=== PATIENT | female | born 1985 | race African-American/Black ===

== ENCOUNTER 2020-04-05 19:22 | Observation (INO) | payer BC, MEDICAID ==
[~2020-04-05] VITALS: Ht 154.9 cm; Wt 81.8 kg
[2020-04-05 20:29] LABS: BILIRUBIN,URINE NEGATIVE (NEG); CLARITY,URINE CLEAR; COLOR,URINE YELLOW; NITRITE,URINE NEGATIVE (NEG); PROTEIN,URINE NEGATIVE (NEG-TRACE); UROBILINOGEN,URINE 0.2 mg/dL (0.2 mg/dL)
[2020-04-05 20:37] LABS: BACTERIA,URINE 0 /HPF (0-FEW); RBC,URINE RARE /HPF (0-2); TRICHOMONAS,URINE PRESENT; WBC,URINE RARE /HPF (0-4)
--- NOTE | 2020-04-06 00:10 | ED.ADGEN ---
Past Medical History Past Medical History: High Cholesterol, Hypertension, Pancreatitis Past Surgical History: No Surgical History Smoking Status: Current Every Day Smoker Additional Information: 1 PPD Alcohol Use: Heavy General Adult EDM: Chief Complaint: ABDOMINAL PAIN HPI: HPI: Patient is a 34 year old female coming in for right-sided abdominal pain started since she woke up at 1530 the afternoon. Patient does states she has a history of pancreatitis but states it affected the left side of her abdomen, 2 years ago. Says she has tried to eat but does not have appetite when she did the pain seemed worse. Patient states the pain is worse with movement. Denies any known history of gallbladder problems. Denies any changes in urination. Patient does states she has alcohol last night. Denies any fevers, cough, pain anywhere else, diarrhea or constipation. Review of Systems: Review of Systems: All other systems within normal limits except for as noted in the HPI Current Medications: Current Medications Medications (Trade) Dose Ordered Sig/Drew Start Time Stop Time Status Last Admin Dose Admin Fentanyl Citrate (Fentanyl 2ml Vial) 75 mcg 1X ONCE 04/06/20 00:15 04/06/20 00:16 DC 04/06/20 00:24 75 MCG Info (CONTRAST GIVEN -- Rx MONITORING) 1 each PRN DAILY PRN 04/06/20 01:15 04/08/20 01:14 Iohexol (Omnipaque 300 Mg/ml) 75 ml 1X ONCE 04/06/20 01:15 04/06/20 01:16 DC 04/06/20 01:00 75 ML Ondansetron HCl (Zofran) 4 mg 1X ONCE 04/06/20 00:15 04/06/20 00:16 DC 04/06/20 00:23 4 MG Allergies: Allergies: Allergies Coded Allergies Type Severity Reaction Last Updated Verified No Known Drug Allergies 04/05/20 No Physical Exam: PE: Constitutional: Well developed, well nourished, no acute distress, non-toxic appearance. [] HENT: Normocephalic, atraumatic, bilateral external ears normal, nose normal. [] Eyes: PERRLA, conjunctiva normal, no discharge. [] Neck: No rigidity, supple, no stridor. [] Cardiovascular: Regular rate and rhythm, brisk cap refill [] Lungs & Thorax: Non labored symmetric respirations, no tachypnea or respiratory distress [] Abdomen: Soft, nondistended, tenderness on right side just lateral to umbilicus, mild guarding, positive rebound, negative Montes sign Skin: Warm, dry, no erythema, no rash. [] Back: No tenderness, no CVA tenderness. [] Extremities: No deformities, range of motion grossly intact, no lower extremity edema [] Neurologic: Alert and oriented X 3, no focal deficits noted. [] Psychologic: Affect normal, judgement normal, mood normal. [] Current Patient Data: Labs: Laboratory Tests Test 04/05/20 20:00 04/05/20 20:06 04/06/20 00:10 Urine Collection Type Unknown Urine Color Yellow Urine Clarity Clear Urine pH 6.0 (<5.0-8.0) Urine Specific [place] 1.015 (1.000-1.030) Urine Protein Negative mg/dL (NEG-TRACE) Urine Glucose (UA) Negative mg/dL (NEG) Urine Ketones (Stick) Negative mg/dL (NEG) Urine Blood Negative (NEG) Urine Nitrite Negative (NEG) Urine Bilirubin Negative (NEG) Urine Urobilinogen Dipstick 0.2 mg/dL (0.2 mg/dL) Urine Leukocyte Esterase Negative (NEG) Urine RBC Rare /HPF (0-2) Urine WBC Rare /HPF (0-4) Urine Squamous Epithelial Cells Mod /LPF Urine Bacteria 0 /HPF (0-FEW) Urine Mucus Slight /LPF Urine Trichomonas Present POC Urine HCG, Qualitative Hcg negative (Negative) White Blood Count 5.6 x10^3/uL (4.0-11.0) Red Blood Count 4.31 x10^6/uL (3.50-5.40) Hemoglobin 14.0 g/dL (12.0-15.5) Hematocrit 40.3 % (36.0-47.0) Mean Corpuscular Volume 94 fL (79-100) Mean Corpuscular Hemoglobin 33 pg (25-35) Mean Corpuscular Hemoglobin Concent 35 g/dL (31-37) Red Cell Distribution Width 15.0 % (11.5-14.5) H Platelet Count 295 x10^3/uL (140-400) Neutrophils (%) (Auto) 37 % (31-73) Lymphocytes (%) (Auto) 55 % (24-48) H Monocytes (%) (Auto) 6 % (0-9) Eosinophils (%) (Auto) 1 % (0-3) Basophils (%) (Auto) 2 % (0-3) Neutrophils # (Auto) 2.1 x10^3/uL (1.8-7.7) Lymphocytes # (Auto) 3.1 x10^3/uL (1.0-4.8) Monocytes # (Auto) 0.4 x10^3/uL (0.0-1.1) Eosinophils # (Auto) 0.0 x10^3/uL (0.0-0.7) Basophils # (Auto) 0.1 x10^3/uL (0.0-0.2) Sodium Level 141 mmol/L (136-145) Potassium Level 3.8 mmol/L (3.5-5.1) Chloride Level 105 mmol/L (98-107) Carbon Dioxide Level 25 mmol/L (21-32) Anion Gap 11 (6-14) Blood Urea Nitrogen 9 mg/dL (7-20) Creatinine 0.7 mg/dL (0.6-1.0) Estimated GFR (Cockcroft-Gault) 115.9 BUN/Creatinine Ratio 13 (6-20) Glucose Level 98 mg/dL (70-99) Calcium Level 8.5 mg/dL (8.5-10.1) Total Bilirubin 0.3 mg/dL (0.2-1.0) Aspartate Amino Transferase (AST) 37 U/L (15-37) Alanine Aminotransferase (ALT) 28 U/L (14-59) Alkaline Phosphatase 87 U/L (46-116) Total Protein 7.6 g/dL (6.4-8.2) Albumin 3.8 g/dL (3.4-5.0) Albumin/Globulin Ratio 1.0 (1.0-1.7) Lipase 256 U/L (73-393) Laboratory Tests 04/06/20 00:10 Laboratory Tests 04/06/20 00:10 Vital Signs: Vital Signs Date Time Temp Pulse Resp B/P (MAP) Pulse Ox O2 Delivery O2 Flow Rate FiO2 04/06/20 00:31 73 20 163/85 (111) 94 Room Air 04/05/20 20:20 98.0 98.0 EKG: EKG: [] Heart Score: Risk Factors: Risk Factors: DM, Current or recent (<one month) smoker, HTN, HLP, family history of CAD, obesity. Risk Scores: Score 0 - 3: 2.5% MACE over next 6 weeks - Discharge Home Score 4 - 6: 20.3% MACE over next 6 weeks - Admit for Clinical Observation Score 7 - 10: 72.7% MACE over next 6 weeks - Early Invasive Strategies Radiology/Procedures: Radiology/Procedures: EXAM: CT Abdomen and Pelvis with IV contrast CLINICAL HISTORY: right side abd pain COMPARISON: none TECHNIQUE: Helical CT of the abdomen and pelvis was performed following the administration of intravenous contrast. Axial, coronal and sagittal reformatted images were generated. PQRS compliance statement - One or more of the following individualized dose reduction techniques were utilized for this study: 1. Automated exposure control 2. Adjustment of the mA and/or kV according to patient size 3. Use of iterative reconstruction technique FINDINGS: Lower Chest: Lung bases are clear. Abdomen and Pelvis: Hepatic hypoattenuation, likely fatty liver. Superimposed low-attenuation at the falciform ligament likely focal fatty infiltration. No biliary ductal dilatation. Gallbladder, spleen, adrenal glands and kidneys are normal in appearance. No hydronephrosis. There is marked infiltration and edema about the pancreatic head suspicious for acute pancreatitis. Homogenous enhancement of the pancreas without evidence for ischemia or loculated fluid collection. Aorta is normal in caliber. Portal vein, splenic vein and SMA are patent. No abdominal or pelvic lymphadenopathy. No abdominal or pelvic ascites. Myometrial prominence anteriorly within the uterus likely from underlying fibroid. Bones: No aggressive osseous lesion. IMPRESSION: 1. Changes of acute pancreatitis, most prominent at the pancreatic head. 2. Hepatic hypoattenuation, likely fatty liver. 3. Suspected fibroid within the uterus anteriorly.[] Course & Med Decision Making: Course & Med Decision Making Pertinent Labs and Imaging studies reviewed. (See chart for details) [] Dragon Disclaimer: Dragon Disclaimer: This electronic medical record was generated, in whole or in part, using a voice recognition dictation system. Departure Departure Impression: Primary Impression: Acute pancreatitis Disposition: 09 ADMITTED INPT THIS HOSP Admitting Physician: EUGENIA Condition: STABLE Referrals: NO PCP (PCP) KAYLYNN PENNINGTON MD Apr 06, 2020 00:10
[2020-04-06] MEDS ORDERED: ONDANSETRON PF 4 MG/2 ML VIAL. IVP ONE (00:15)
[2020-04-06] MEDS ORDERED: fentaNYL PF VIAL 100 MCG/2 ML VIAL IVP ONE (00:15)
[2020-04-06 00:23] LABS: BASO # 0.1 x10^3/uL (0.0-0.2); BASO % 2 % (0-3); EOS % 1 % (0-3); HEMATOCRIT 40.3 % (36.0-47.0); LYMPH # 3.1 x10^3/uL (1.0-4.8); LYMPH % 55 % (24-48); MEAN CORPUSCULAR HEMOGLOBIN 33 pg (25-35); MEAN CORPUSCULAR HGB CONC 35 g/dL (31-37); MEAN CORPUSCULAR VOLUME 94 fL (79-100); MONO # 0.4 x10^3/uL (0.0-1.1); MONO % 6 % (0-9); NEUT # 2.1 x10^3/uL (1.8-7.7); NEUT % 37 % (31-73); PLATELET COUNT 295 x10^3/uL (140-400); RED BLOOD COUNT 4.31 x10^6/uL (3.50-5.40); WHITE BLOOD COUNT 5.6 x10^3/uL (4.0-11.0)
[2020-04-06 00:30] LABS: CALCIUM 8.5 mg/dL (8.5-10.1); CREATININE 0.7 mg/dL (0.6-1.0); GFR 115.9; POTASSIUM 3.8 mmol/L (3.5-5.1)
[2020-04-06 00:36] LABS: ALBUMIN 3.8 g/dL (3.4-5.0); TOTAL BILIRUBIN 0.3 mg/dL (0.2-1.0); TOTAL PROTEIN 7.6 g/dL (6.4-8.2)
[2020-04-06] MEDS ORDERED: CONTRAST GIVEN. MC PRN (01:15)
[2020-04-06] MEDS ORDERED: IOHEXOL 300 MG/ML 100ML VIAL. IV ONE (01:15)
--- NOTE | 2020-04-06 01:20 | RAD ---
EXAM: CT Abdomen and Pelvis with IV contrast CLINICAL HISTORY: right side abd pain COMPARISON: none TECHNIQUE: Helical CT of the abdomen and pelvis was performed following the administration of intrave nous contrast. Axial, coronal and sagittal reformatted images were generated. PQRS compliance statement - One or more of the following individualized dose reduction techniques wer e utilized for this study: 1. Automated exposure control 2. Adjustment of the mA and/or kV according to patient size 3. Use of iterative reconstruction technique FINDINGS: Lower Chest: Lung bases are clear. Abdomen and Pelvis: Hepatic hypoattenuation, likely fatty liver. Superimposed low-attenuation at the falciform ligament l ikely focal fatty infiltration. No biliary ductal dilatation. Gallbladder, spleen, adrenal glands and kidneys are normal in appearance. No hydronephrosis. There is marked infiltration and edema about the pancreatic head suspicious for acute pancreatitis. H omogenous enhancement of the pancreas without evidence for ischemia or loculated fluid collection. Aorta is normal in caliber. Portal vein, splenic vein and SMA are patent. No abdominal or pelvic lymp hadenopathy. No abdominal or pelvic ascites. Myometrial prominence anteriorly within the uterus likely from underlying fibroid. Bones: No aggressive osseous lesion. IMPRESSION: 1. Changes of acute pancreatitis, most prominent at the pancreatic head. 2. Hepatic hypoattenuation, likely fatty liver. 3. Suspected fibroid within the uterus anteriorly. Electronically signed by: Marcus Álvarez MD (04/06/2020 1:18 AM) SHERIE
[2020-04-06] MEDS ORDERED: ONDANSETRON PF 4 MG/2 ML VIAL. IV PRN (01:45)
[2020-04-06 03:00] VITALS: BP 165/110
[2020-04-06] MEDS: IV NORMAL SALINE 1000ML BAG 1,000 ML IV SCH ×5 (03:18→21:50)
[2020-04-06] MEDS: MORPHINE SULFATE 4 MG/ML VIAL. IV PRN ×3 (03:19→08:39)
[2020-04-06] MEDS ORDERED: MORPHINE SULFATE 4 MG/ML VIAL. IV PRN (04:00)
[2020-04-06] MEDS: NICOTINE 21MG PATCH. TD SCH ×2 (04:34→08:33)
[2020-04-06 07:00] VITALS: BP 144/97
--- NOTE | 2020-04-06 08:20 | PDOC1 ---
History and Physical Date of Service: DOS: DATE: 04/06/20 TIME: 08:17 Chief Complaint: Chief Complain: Abdominal pain History of Present Illness: HPI: 34 year old female coming in for right-sided abdominal pain started since she woke up at 1530 the afternoon. Patient does states she has a history of pancreatitis but states it affected the left side of her abdomen, 2 years ago. Says she has tried to eat but does not have appetite when she did the pain seemed worse. Patient states the pain is worse with movement. Denies any known history of gallbladder problems. Denies any changes in urination. Patient does states she has alcohol last night. Denies any fevers, cough, pain anywhere else, diarrhea or constipation. Past Medical/Surgical History: PMH/PSH: Past Medical History: High Cholesterol, Hypertension, Pancreatitis Past Surgical History: No Surgical History Allergies: Allergies: Coded Allergies: No Known Drug Allergies (Unverified , 04/05/20) Family History: Family History: Reviewed with no relevant findings Social History: Social History: Smoking Status: Current Every Day Smoker Additional Information: 1 PPD Alcohol Use: Heavy Current Medications: Current Medications Current Medications Ondansetron HCl (Zofran) 4 mg 1X ONCE IVP Last administered on 04/06/20at 00:23; Start 04/06/20 at 00:15; Stop 04/06/20 at 00:16; Status DC Fentanyl Citrate (Fentanyl 2ml Vial) 75 mcg 1X ONCE IVP Last administered on 04/06/20at 00:24; Start 04/06/20 at 00:15; Stop 04/06/20 at 00:16; Status DC Iohexol (Omnipaque 300 Mg/ml) 75 ml 1X ONCE IV Last administered on 04/06/20at 01:00; Start 04/06/20 at 01:15; Stop 04/06/20 at 01:16; Status DC Info (CONTRAST GIVEN -- Rx MONITORING) 1 each PRN DAILY PRN MC SEE COMMENTS; Start 04/06/20 at 01:15; Stop 04/08/20 at 01:14 Ondansetron HCl (Zofran) 4 mg PRN Q8HRS PRN IV NAUSEA/VOMITING; Start 04/06/20 at 01:45; Stop 04/07/20 at 01:44 Morphine Sulfate (Morphine Sulfate) 4 mg PRN Q2HR PRN IV PAIN Last administered on 04/06/20at 05:55; Start 04/06/20 at 01:45; Stop 04/07/20 at 01:44 Sodium Chloride 1,000 ml @ 100 mls/hr Q10H IV Last administered on 04/06/20at 03:18; Start 04/06/20 at 01:45; Stop 04/07/20 at 01:44 Nicotine (Nicoderm Cq 21mg) 1 patch DAILY TD Last administered on 04/06/20at 04:34; Start 04/06/20 at 04:30 ROS: Review of Systems Review of System REVIEW OF SYSTEMS: GENERAL: Denies weakness SKIN: No bruising, hair changes or rashes. EYES: No blurred, double or loss of vision. NOSE AND THROAT: No history of nosebleeds, hoarseness or sore throat. HEART: No history of palpitations, chest pain or shortness of breath on exertion. LUNGS: Denies cough, hemoptysis, wheezing or shortness of breath. GASTROINTESTINAL: Denies changes in appetite, nausea, vomiting, diarrhea or constipation. GENITOURINARY: No history of frequency, urgency, hesitancy or nocturia. NEUROLOGIC: Denies history of numbness, tingling, or tremor. PSYCHIATRIC: No history of panic, anxiety or depression. ENDOCRINE: No history of heat or cold intolerance, polyuria or polydipsia. EXTREMITIES: Denies joint pain, pain on walking or stiffness. Physical Exam: Vital Signs: Vital Signs Date Time Temp Pulse Resp B/P (MAP) Pulse Ox O2 Delivery O2 Flow Rate FiO2 04/06/20 07:00 98.0 75 16 144/97 (113) 98 Room Air 98.0 Physcial Exam: GEN: No apparent distress. Alert and oriented HEENT: Normal cephalic, atraumatic, external auditory canals are patent EYES: Extraocular muscles are intact, pupil are equally round and reactive to light and accommodation MUSCULOSKELETAL: Well developed , well nourished, good range of motion ENDOCRINE: No thyromegaly was palpated LYMPHATICS: No cervical chain or axillary nodes were noted HEMATOPOIETIC: No bruising NECK: Supple, no JVD, no thyromegaly was noted LUNGS: Clear to auscultation in all lung m[place] without rhonchi or wheezing HEART: RRR, S!, S2 present. Peripheral pulses intact, no obvious murmurs noted ABDOMEN: Soft, nontender. Positive bowel sounds, no organomegaly, normal bowel sounds EXTREMITIES: Without clubbing, cyanosis, or edema. Pedal pulses intact. Negative Homans sign NEUROLOGIC: Normal speech and tone. A&O x 3, moves all extremities, no obvious focal deficits PSYCHIATRIC: Normal affect, normal mood. Stable SKIN: No ulcerations or rashes, good skin turgor, no jaundice VASCULAR: Good capillary refill, neurovascular bundle appears to be intact Labs: Labs: Laboratory Tests Test 04/05/20 20:00 04/05/20 20:06 04/06/20 00:10 Urine Collection Type Unknown Urine Color Yellow Urine Clarity Clear Urine pH 6.0 (<5.0-8.0) Urine Specific [place] 1.015 (1.000-1.030) Urine Protein Negative mg/dL (NEG-TRACE) Urine Glucose (UA) Negative mg/dL (NEG) Urine Ketones (Stick) Negative mg/dL (NEG) Urine Blood Negative (NEG) Urine Nitrite Negative (NEG) Urine Bilirubin Negative (NEG) Urine Urobilinogen Dipstick 0.2 mg/dL (0.2 mg/dL) Urine Leukocyte Esterase Negative (NEG) Urine RBC Rare /HPF (0-2) Urine WBC Rare /HPF (0-4) Urine Squamous Epithelial Cells Mod /LPF Urine Bacteria 0 /HPF (0-FEW) Urine Mucus Slight /LPF Urine Trichomonas Present Bedside Urine HCG, Qualitative Hcg negative (Negative) White Blood Count 5.6 x10^3/uL (4.0-11.0) Red Blood Count 4.31 x10^6/uL (3.50-5.40) Hemoglobin 14.0 g/dL (12.0-15.5) Hematocrit 40.3 % (36.0-47.0) Mean Corpuscular Volume 94 fL (79-100) Mean Corpuscular Hemoglobin 33 pg (25-35) Mean Corpuscular Hemoglobin Concent 35 g/dL (31-37) Red Cell Distribution Width 15.0 % (11.5-14.5) Platelet Count 295 x10^3/uL (140-400) Neutrophils (%) (Auto) 37 % (31-73) Lymphocytes (%) (Auto) 55 % (24-48) Monocytes (%) (Auto) 6 % (0-9) Eosinophils (%) (Auto) 1 % (0-3) Basophils (%) (Auto) 2 % (0-3) Neutrophils # (Auto) 2.1 x10^3/uL (1.8-7.7) Lymphocytes # (Auto) 3.1 x10^3/uL (1.0-4.8) Monocytes # (Auto) 0.4 x10^3/uL (0.0-1.1) Eosinophils # (Auto) 0.0 x10^3/uL (0.0-0.7) Basophils # (Auto) 0.1 x10^3/uL (0.0-0.2) Sodium Level 141 mmol/L (136-145) Potassium Level 3.8 mmol/L (3.5-5.1) Chloride Level 105 mmol/L (98-107) Carbon Dioxide Level 25 mmol/L (21-32) Anion Gap 11 (6-14) Blood Urea Nitrogen 9 mg/dL (7-20) Creatinine 0.7 mg/dL (0.6-1.0) Estimated GFR (Cockcroft-Gault) 115.9 BUN/Creatinine Ratio 13 (6-20) Glucose Level 98 mg/dL (70-99) Calcium Level 8.5 mg/dL (8.5-10.1) Total Bilirubin 0.3 mg/dL (0.2-1.0) Aspartate Amino Transf (AST/SGOT) 37 U/L (15-37) Alanine Aminotransferase (ALT/SGPT) 28 U/L (14-59) Alkaline Phosphatase 87 U/L (46-116) Total Protein 7.6 g/dL (6.4-8.2) Albumin 3.8 g/dL (3.4-5.0) Albumin/Globulin Ratio 1.0 (1.0-1.7) Lipase 256 U/L (73-393) Laboratory Tests Test 04/05/20 20:00 04/05/20 20:06 04/06/20 00:10 Urine Collection Type Unknown Urine Color Yellow Urine Clarity Clear Urine pH 6.0 (<5.0-8.0) Urine Specific [place] 1.015 (1.000-1.030) Urine Protein Negative mg/dL (NEG-TRACE) Urine Glucose (UA) Negative mg/dL (NEG) Urine Ketones (Stick) Negative mg/dL (NEG) Urine Blood Negative (NEG) Urine Nitrite Negative (NEG) Urine Bilirubin Negative (NEG) Urine Urobilinogen Dipstick 0.2 mg/dL (0.2 mg/dL) Urine Leukocyte Esterase Negative (NEG) Urine RBC Rare /HPF (0-2) Urine WBC Rare /HPF (0-4) Urine Squamous Epithelial Cells Mod /LPF Urine Bacteria 0 /HPF (0-FEW) Urine Mucus Slight /LPF Urine Trichomonas Present Bedside Urine HCG, Qualitative Hcg negative (Negative) White Blood Count 5.6 x10^3/uL (4.0-11.0) Red Blood Count 4.31 x10^6/uL (3.50-5.40) Hemoglobin 14.0 g/dL (12.0-15.5) Hematocrit 40.3 % (36.0-47.0) Mean Corpuscular Volume 94 fL (79-100) Mean Corpuscular Hemoglobin 33 pg (25-35) Mean Corpuscular Hemoglobin Concent 35 g/dL (31-37) Red Cell Distribution Width 15.0 % (11.5-14.5) Platelet Count 295 x10^3/uL (140-400) Neutrophils (%) (Auto) 37 % (31-73) Lymphocytes (%) (Auto) 55 % (24-48) Monocytes (%) (Auto) 6 % (0-9) Eosinophils (%) (Auto) 1 % (0-3) Basophils (%) (Auto) 2 % (0-3) Neutrophils # (Auto) 2.1 x10^3/uL (1.8-7.7) Lymphocytes # (Auto) 3.1 x10^3/uL (1.0-4.8) Monocytes # (Auto) 0.4 x10^3/uL (0.0-1.1) Eosinophils # (Auto) 0.0 x10^3/uL (0.0-0.7) Basophils # (Auto) 0.1 x10^3/uL (0.0-0.2) Sodium Level 141 mmol/L (136-145) Potassium Level 3.8 mmol/L (3.5-5.1) Chloride Level 105 mmol/L (98-107) Carbon Dioxide Level 25 mmol/L (21-32) Anion Gap 11 (6-14) Blood Urea Nitrogen 9 mg/dL (7-20) Creatinine 0.7 mg/dL (0.6-1.0) Estimated GFR (Cockcroft-Gault) 115.9 BUN/Creatinine Ratio 13 (6-20) Glucose Level 98 mg/dL (70-99) Calcium Level 8.5 mg/dL (8.5-10.1) Total Bilirubin 0.3 mg/dL (0.2-1.0) Aspartate Amino Transf (AST/SGOT) 37 U/L (15-37) Alanine Aminotransferase (ALT/SGPT) 28 U/L (14-59) Alkaline Phosphatase 87 U/L (46-116) Total Protein 7.6 g/dL (6.4-8.2) Albumin 3.8 g/dL (3.4-5.0) Albumin/Globulin Ratio 1.0 (1.0-1.7) Lipase 256 U/L (73-393) Images: Images IMPRESSION: 1. Changes of acute pancreatitis, most prominent at the pancreatic head. 2. Hepatic hypoattenuation, likely fatty liver. 3. Suspected fibroid within the uterus anteriorly. Assessment/Plan Assessment/Plan Acute abdominal pain with radiographic suggestion of acute pancreatitis Hepatic steatosis Uterine fibroid Tobacco misuse Admit to medicine for further management Keep n.p.o. Continue IV fluids IV pain control Pending abdominal ultrasound to rule out gallstone pancreatitis Pending lipid panel to rule out triglyceride induced pancreatitis Lovenox for DVT prophylaxis Pepcid GI prophylaxis ADA diet Full code Discussed with RN and SW Disposition inpatient management as above Surrogate decision maker is the self Justifications for Admission Other Justification GHAZAL GARNETT MD Apr 06, 2020 08:20
[2020-04-06] MEDS ORDERED: SENNOSIDES 8.6 MG TABLET PO PRN (08:30)
[2020-04-06] MEDS ORDERED: ACETAMINOPHEN 325 MG TABLET. PO PRN (08:30)
[2020-04-06] MEDS ORDERED: DOCUSATE SODIUM 100 MG CAPSULE. PO PRN (08:30)
[2020-04-06] MEDS ORDERED: MORPHINE SULFATE 2 MG/ML VIAL. IV PRN (08:30)
[2020-04-06] MEDS ORDERED: DEXTROSE 50% 25 GM / 50ML DISP.SYRIN. IV PRN (08:30)
[2020-04-06] MEDS: ENOXAPARIN 40 MG/0.4 ML SYRINGE. SQ SCH (08:44)
[2020-04-06 08:53] LABS: CHOLESTEROL/HDL RATIO 1.4
--- NOTE | 2020-04-06 10:09 | NUR ---
[facility] following. Discussed with RN, pt from home, room air, NPO. Dr. Matute consulted. PT/OT ordered, however pt is independent - RN cancelling order. [facility] will continue to follow. Addendum: 04/06/20 at 1010 by REGULO URBINA Med Assist following for self pay status.
[2020-04-06 11:00] VITALS: BP 138/88
[2020-04-06] MEDS: oxyCODONE/APAP 5/325 1 TAB TABLET PO PRN ×2 (12:11→23:26)
--- NOTE | 2020-04-06 13:59 | PDOC2 ---
CONSULT Date of Consult Date of Consult DATE: 04/06/20 TIME: 13:58 Reason for Consult Reason for Consult: Fibroids History of Present Illness Reason for Visit: 34y admitted for pancreatitis. The pt presented to the ER with right sided pain this am. The pain began yesterday afternoon. The pt had h/o pancreatitis 2yrs ago. She underwent a CT revealing acute pancreatitis, likely fatty liver and an anterior fibroid. The pt has never been told that she has fibroids. Discussed common issues that fibroids can lead to. The pt does not feel she has any specific issues with bleeding. Although when asked if her cycles heavy, the pt does state that they are. She feels that has been the case since after 16 yrs ago. She has never been on anything for it and d oes not recall any anemia. She is just coming off her last cycle that started about 2 days ago. Discussed tx options for fibroids/heavy bleeding including expectant, medical, and surgical management. The pt has just recently moved back from [place]. She does not have a PCP or Data Conversion Analyst. She was trying to establish insurance in [place] prior to making an appt. She has been dxed with HTN, but has not been on anything for yrs. PMH: HTN, h/o pancreatitis PSH: Denies Meds: None All: NKDA OBHx: 1 x TSVD Data Conversion Analyst: LMP 04/04/20 Menarche 11yo / regular 28 day cycles / flow for 5 days (1st 2 days heavy) SH: tob and EtOH use FH: noncontributory Current Problem List Problem List Problems Medical Problems: (1) Acute pancreatitis Status: Acute Current Medications Current Medications Current Medications Ondansetron HCl (Zofran) 4 mg 1X ONCE IVP Last administered on 04/06/20at 00:23; Start 04/06/20 at 00:15; Stop 04/06/20 at 00:16; Status DC Fentanyl Citrate (Fentanyl 2ml Vial) 75 mcg 1X ONCE IVP Last administered on 04/06/20at 00:24; Start 04/06/20 at 00:15; Stop 04/06/20 at 00:16; Status DC Iohexol (Omnipaque 300 Mg/ml) 75 ml 1X ONCE IV Last administered on 04/06/20at 01:00; Start 04/06/20 at 01:15; Stop 04/06/20 at 01:16; Status DC Info (CONTRAST GIVEN -- Rx MONITORING) 1 each PRN DAILY PRN MC SEE COMMENTS; Start 04/06/20 at 01:15; Stop 04/08/20 at 01:14 Ondansetron HCl (Zofran) 4 mg PRN Q8HRS PRN IV NAUSEA/VOMITING; Start 04/06/20 at 01:45; Stop 04/06/20 at 13:45; Status DC Morphine Sulfate (Morphine Sulfate) 4 mg PRN Q2HR PRN IV PAIN Last administered on 04/06/20at 08:39; Start 04/06/20 at 01:45; Stop 04/06/20 at 13:42; Status DC Sodium Chloride 1,000 ml @ 100 mls/hr Q10H IV Last administered on 04/06/20at 12:13; Start 04/06/20 at 01:45; Stop 04/07/20 at 01:44 Nicotine (Nicoderm Cq 21mg) 1 patch DAILY TD Last administered on 04/06/20at 04:34; Start 04/06/20 at 04:30 Sennosides (Senna) 17.2 mg PRN BID PRN PO CONSTIPATION; Start 04/06/20 at 08:30 Docusate Sodium (Colace) 100 mg PRN DAILY PRN PO HARD STOOLS; Start 04/06/20 at 08:30 Ondansetron HCl (Zofran) 4 mg PRN Q6HRS PRN IVP NAUSEA/VOMITING; Start 04/06/20 at 08:30 Dextrose (Dextrose 50%-Water Syringe) 12.5 gm PRN Q15MIN PRN IV SEE COMMENTS; Start 04/06/20 at 08:30 Sodium Chloride 1,000 ml @ 100 mls/hr Q10H IV Last administered on 04/06/20at 08:40; Start 04/06/20 at 08:30 Acetaminophen (Tylenol) 650 mg PRN Q4HRS PRN PO TEMP OVER 100.4F OR MILD PAIN; Start 04/06/20 at 08:30 Enoxaparin Sodium (Lovenox 40mg Syringe) 40 mg Q24H SQ Last administered on 04/06/20at 08:44; Start 04/06/20 at 09:00 Morphine Sulfate (Morphine Sulfate) 1 mg PRN Q1HR PRN IV MODERATE PAIN; Start 04/06/20 at 08:30 Morphine Sulfate (Morphine Sulfate) 2 mg PRN Q2HR PRN IV SEVERE PAIN 7-10; Start 04/06/20 at 04:00; Stop 04/07/20 at 03:59 Oxycodone/ Acetaminophen (Percocet 5/325) 1 tab PRN Q6HRS PRN PO MODERATE- SEVERE PAIN Last administered on 04/06/20at 12:11; Start 04/06/20 at 12:00 Allergies Allergies: Coded Allergies: No Known Drug Allergies (Unverified , 04/05/20) Physical Exam General: Alert, Oriented X3, Cooperative, No acute distress HEENT: PERRLA, Mucous membr. moist/pink Lungs: Clear to auscultation, Normal air movement Heart: Regular rate, Normal S1, Normal S2, No murmurs Abdomen: No masses Extremities: No clubbing, No cyanosis, No edema, Normal pulses, No tenderness/swelling Skin: No rashes, No breakdown Neuro: Normal gait, Normal speech, Normal tone, Sensation intact, Reflexes 2+ Psych/Mental Status: Mental status NL, Mood NL Vitals VITALS Vital Signs Date Time Temp Pulse Resp B/P (MAP) Pulse Ox O2 Delivery O2 Flow Rate FiO2 04/06/20 11:00 97.4 84 19 138/88 (105) 97 Room Air 97.4 Labs Labs Laboratory Tests Test 04/05/20 20:00 04/05/20 20:06 04/06/20 00:10 Urine Collection Type Unknown Urine Color Yellow Urine Clarity Clear Urine pH 6.0 (<5.0-8.0) Urine Specific Rousseau 1.015 (1.000-1.030) Urine Protein Negative mg/dL (NEG-TRACE) Urine Glucose (UA) Negative mg/dL (NEG) Urine Ketones (Stick) Negative mg/dL (NEG) Urine Blood Negative (NEG) Urine Nitrite Negative (NEG) Urine Bilirubin Negative (NEG) Urine Urobilinogen Dipstick 0.2 mg/dL (0.2 mg/dL) Urine Leukocyte Esterase Negative (NEG) Urine RBC Rare /HPF (0-2) Urine WBC Rare /HPF (0-4) Urine Squamous Epithelial Cells Mod /LPF Urine Bacteria 0 /HPF (0-FEW) Urine Mucus Slight /LPF Urine Trichomonas Present Bedside Urine HCG, Qualitative Hcg negative (Negative) White Blood Count 5.6 x10^3/uL (4.0-11.0) Red Blood Count 4.31 x10^6/uL (3.50-5.40) Hemoglobin 14.0 g/dL (12.0-15.5) Hematocrit 40.3 % (36.0-47.0) Mean Corpuscular Volume 94 fL (79-100) Mean Corpuscular Hemoglobin 33 pg (25-35) Mean Corpuscular Hemoglobin Concent 35 g/dL (31-37) Red Cell Distribution Width 15.0 % (11.5-14.5) Platelet Count 295 x10^3/uL (140-400) Neutrophils (%) (Auto) 37 % (31-73) Lymphocytes (%) (Auto) 55 % (24-48) Monocytes (%) (Auto) 6 % (0-9) Eosinophils (%) (Auto) 1 % (0-3) Basophils (%) (Auto) 2 % (0-3) Neutrophils # (Auto) 2.1 x10^3/uL (1.8-7.7) Lymphocytes # (Auto) 3.1 x10^3/uL (1.0-4.8) Monocytes # (Auto) 0.4 x10^3/uL (0.0-1.1) Eosinophils # (Auto) 0.0 x10^3/uL (0.0-0.7) Basophils # (Auto) 0.1 x10^3/uL (0.0-0.2) Sodium Level 141 mmol/L (136-145) Potassium Level 3.8 mmol/L (3.5-5.1) Chloride Level 105 mmol/L (98-107) Carbon Dioxide Level 25 mmol/L (21-32) Anion Gap 11 (6-14) Blood Urea Nitrogen 9 mg/dL (7-20) Creatinine 0.7 mg/dL (0.6-1.0) Estimated GFR (Cockcroft-Gault) 115.9 BUN/Creatinine Ratio 13 (6-20) Glucose Level 98 mg/dL (70-99) Calcium Level 8.5 mg/dL (8.5-10.1) Total Bilirubin 0.3 mg/dL (0.2-1.0) Aspartate Amino Transf (AST/SGOT) 37 U/L (15-37) Alanine Aminotransferase (ALT/SGPT) 28 U/L (14-59) Alkaline Phosphatase 87 U/L (46-116) Total Protein 7.6 g/dL (6.4-8.2) Albumin 3.8 g/dL (3.4-5.0) Albumin/Globulin Ratio 1.0 (1.0-1.7) Triglycerides Level 121 mg/dL (0-150) Cholesterol Level 154 mg/dL (0-200) LDL Cholesterol, Calculated 23 mg/dL (0-100) VLDL Cholesterol, Calculated 24 mg/dL (0-40) Non-HDL Cholesterol Calculated 47 mg/dL (0-129) HDL Cholesterol 107 mg/dL (40-60) Cholesterol/HDL Ratio 1.4 Lipase 256 U/L (73-393) Laboratory Tests Test 04/05/20 20:00 04/05/20 20:06 04/06/20 00:10 Urine Collection Type Unknown Urine Color Yellow Urine Clarity Clear Urine pH 6.0 (<5.0-8.0) Urine Specific Rousseau 1.015 (1.000-1.030) Urine Protein Negative mg/dL (NEG-TRACE) Urine Glucose (UA) Negative mg/dL (NEG) Urine Ketones (Stick) Negative mg/dL (NEG) Urine Blood Negative (NEG) Urine Nitrite Negative (NEG) Urine Bilirubin Negative (NEG) Urine Urobilinogen Dipstick 0.2 mg/dL (0.2 mg/dL) Urine Leukocyte Esterase Negative (NEG) Urine RBC Rare /HPF (0-2) Urine WBC Rare /HPF (0-4) Urine Squamous Epithelial Cells Mod /LPF Urine Bacteria 0 /HPF (0-FEW) Urine Mucus Slight /LPF Urine Trichomonas Present Bedside Urine HCG, Qualitative Hcg negative (Negative) White Blood Count 5.6 x10^3/uL (4.0-11.0) Red Blood Count 4.31 x10^6/uL (3.50-5.40) Hemoglobin 14.0 g/dL (12.0-15.5) Hematocrit 40.3 % (36.0-47.0) Mean Corpuscular Volume 94 fL (79-100) Mean Corpuscular Hemoglobin 33 pg (25-35) Mean Corpuscular Hemoglobin Concent 35 g/dL (31-37) Red Cell Distribution Width 15.0 % (11.5-14.5) Platelet Count 295 x10^3/uL (140-400) Neutrophils (%) (Auto) 37 % (31-73) Lymphocytes (%) (Auto) 55 % (24-48) Monocytes (%) (Auto) 6 % (0-9) Eosinophils (%) (Auto) 1 % (0-3) Basophils (%) (Auto) 2 % (0-3) Neutrophils # (Auto) 2.1 x10^3/uL (1.8-7.7) Lymphocytes # (Auto) 3.1 x10^3/uL (1.0-4.8) Monocytes # (Auto) 0.4 x10^3/uL (0.0-1.1) Eosinophils # (Auto) 0.0 x10^3/uL (0.0-0.7) Basophils # (Auto) 0.1 x10^3/uL (0.0-0.2) Sodium Level 141 mmol/L (136-145) Potassium Level 3.8 mmol/L (3.5-5.1) Chloride Level 105 mmol/L (98-107) Carbon Dioxide Level 25 mmol/L (21-32) Anion Gap 11 (6-14) Blood Urea Nitrogen 9 mg/dL (7-20) Creatinine 0.7 mg/dL (0.6-1.0) Estimated GFR (Cockcroft-Gault) 115.9 BUN/Creatinine Ratio 13 (6-20) Glucose Level 98 mg/dL (70-99) Calcium Level 8.5 mg/dL (8.5-10.1) Total Bilirubin 0.3 mg/dL (0.2-1.0) Aspartate Amino Transf (AST/SGOT) 37 U/L (15-37) Alanine Aminotransferase (ALT/SGPT) 28 U/L (14-59) Alkaline Phosphatase 87 U/L (46-116) Total Protein 7.6 g/dL (6.4-8.2) Albumin 3.8 g/dL (3.4-5.0) Albumin/Globulin Ratio 1.0 (1.0-1.7) Triglycerides Level 121 mg/dL (0-150) Cholesterol Level 154 mg/dL (0-200) LDL Cholesterol, Calculated 23 mg/dL (0-100) VLDL Cholesterol, Calculated 24 mg/dL (0-40) Non-HDL Cholesterol Calculated 47 mg/dL (0-129) HDL Cholesterol 107 mg/dL (40-60) Cholesterol/HDL Ratio 1.4 Lipase 256 U/L (73-393) Assessment/Plan Assessment/Plan Assessment: 34y admitted for pancreatitis Recommendations: 1.) Uterine leiomyomas - explained to the pt that leiomyomas are very common. Explained many leiomyomas are asx, but typically symptomatic fibroids present with abnormal uterine bleeding and/or pelvic pain/pressure. The pt does recall heavy bleeding, although it does not appear to have led to anemia. A pelvic u/s can better help characterize fibroids, but may be of little value since the fibroids to not seem to be problematic. With the above and considering that she is not currently bleeding, expectant management may be the best approach at this time. 2.) Heavy bleeding 2/2 fibroids, as above 3.) Pancreatitis per primary team 4.) Fatty liver per primary team 5.) HTN not well controlled, has not established with PCP, managed inpt per primary team 6.) Will continue to follow LIAM GRIGGS MD Apr 06, 2020 13:59
--- NOTE | 2020-04-06 14:08 | RAD ---
US ABDOMEN COMPLETE: 04/06/2020 9:09 AM Indication: 34 years old Female. Pancreatitis Comparison: CT abdomen/pelvis 04/06/2020 TECHNIQUE: Sonographic evaluation of the abdomen is performed utilizing grayscale and color Doppler. FINDINGS: Liver: There is diffuse increased echogenicity of the hepatic parenchyma compatible with diffuse hepa tocellular disease, most commonly due to steatosis. This decreases the sensitivity of ultrasound for the detection of focal hepatic lesions.. There is hepatopedal flow within the portal venous system. R ight hepatic lobe measures 18.4 cm. Biliary system: CBD measures 4 mm. There is no intrahepatic or extrahepatic biliary dilatation. Gallbladder: No stones, wall thickening or pericholecystic fluid. . Sonographic Montes sign: Negative Pancreas: No suspicious peripancreatic fluid collections are identified Spleen: 8.8 cm. Right kidney: 11.4 x 5.1 x 4.9 cm. No hydronephrosis. Normal echotexture without focal mass or renal calculus. Left kidney: 11.5 x 5.4 x 6.1 cm. No hydronephrosis. Normal echotexture without focal mass or renal c alculus. Abdominal aorta and IVC: Visualized portions unremarkable. Proximal aorta measures 1.19. Mid aorta me asures 1.17. Distal aorta measures 1.5 cm. Free fluid:None. IMPRESSION: No cholelithiasis or sonographic evidence for acute cholecystitis. No peripancreatic fluid collection is identified. Increased echogenicity of the hepatic parenchyma suggestive of hepatocellular disease, most commonly hepatic steatosis. This limits evaluation for underlying hepatic masses. Electronically signed by: Amber Reynolds MD (04/06/2020 2:06 PM) [place] [id number]
[2020-04-06] MEDS: ONDANSETRON PF 4 MG/2 ML VIAL. IVP PRN (14:51)
[2020-04-06 15:00] VITALS: BP 154/101
[2020-04-06] MEDS ORDERED: THIAMINE INJ 100 MG, FOLIC ACID INJ 1 MG in IV NORMAL SALINE 1000ML BAG 1,000 ML IV SCH (15:00)
[2020-04-06] MEDS: MULTIVITAMIN with MINERAL TABLET. PO SCH (17:13)
[2020-04-06] MEDS: THIAMINE 100 MG TABLET. PO SCH (17:13)
[2020-04-06] MEDS: FOLIC ACID 1 MG TABLET. PO SCH (17:13)
[2020-04-06 17:46] LABS: BARBITURATES NEG (NEG); BENZODIAZEPINES NEG (NEG); CANNABINOIDS NEG (NEG); COCAINE NEG (NEG); METHADONE NEG (NEG); OPIATES POS (NEG); PHENCYCLIDINE NEG (NEG)
[2020-04-06 17:47] LABS: AMPHETAMINE/METHAMPHETAMINE NEG (NEG)
[2020-04-06 19:00] VITALS: BP 179/106
[2020-04-06 23:11] VITALS: BP 181/118
[2020-04-06] MEDS: METOPROLOL TART IMMED RELEASE 25 MG TABLET. PO PRN (23:23)
[2020-04-07] VITALS (7 sets, daily range): BP systolic 163–181; BP diastolic 106–121
[2020-04-07] MEDS: IV NORMAL SALINE 1000ML BAG 1,000 ML IV SCH ×2 (05:13→07:50)
[2020-04-07] MEDS: MORPHINE SULFATE 2 MG/ML VIAL. IV PRN ×2 (05:13→19:55)
[2020-04-07] MEDS: NICOTINE 21MG PATCH. TD SCH (07:47)
[2020-04-07] MEDS: MULTIVITAMIN with MINERAL TABLET. PO SCH (07:48)
[2020-04-07] MEDS: THIAMINE 100 MG TABLET. PO SCH (07:48)
[2020-04-07] MEDS: ENOXAPARIN 40 MG/0.4 ML SYRINGE. SQ SCH (07:48)
[2020-04-07] MEDS: FOLIC ACID 1 MG TABLET. PO SCH (07:48)
[2020-04-07] MEDS: ONDANSETRON PF 4 MG/2 ML VIAL. IVP PRN (07:49)
[2020-04-07] MEDS: METOPROLOL TART IMMED RELEASE 25 MG TABLET. PO PRN ×3 (07:49→21:33)
[2020-04-07 08:11] LABS: BASO % 1 % (0-3); EOS % 1 % (0-3); HEMATOCRIT 37.6 % (36.0-47.0); HEMOGLOBIN 12.6 g/dL (12.0-15.5); LYMPH # 1.3 x10^3/uL (1.0-4.8); LYMPH % 33 % (24-48); MEAN CORPUSCULAR HEMOGLOBIN 32 pg (25-35); MEAN CORPUSCULAR HGB CONC 34 g/dL (31-37); MEAN CORPUSCULAR VOLUME 94 fL (79-100); MONO # 0.5 x10^3/uL (0.0-1.1); MONO % 12 % (0-9); NEUT # 2.2 x10^3/uL (1.8-7.7); NEUT % 54 % (31-73); PLATELET COUNT 232 x10^3/uL (140-400); RED BLOOD COUNT 4.01 x10^6/uL (3.50-5.40); RED CELL DISTRIBUTION WIDTH 14.7 % (11.5-14.5)
[2020-04-07 08:52] LABS: ALBUMIN 3.3 g/dL (3.4-5.0); ALBUMIN/GLOBULIN RATIO 0.9 (1.0-1.7); CALCIUM 8.2 mg/dL (8.5-10.1); CREATININE 0.7 mg/dL (0.6-1.0); GFR 115.9; POTASSIUM 3.4 mmol/L (3.5-5.1); TOTAL BILIRUBIN 0.8 mg/dL (0.2-1.0); TOTAL PROTEIN 6.9 g/dL (6.4-8.2)
[2020-04-07 08:55] LABS: MAGNESIUM 1.6 mg/dL (1.8-2.4); PHOSPHORUS 2.5 mg/dL (2.6-4.7)
--- NOTE | 2020-04-07 10:28 | NUR ---
SW following. Discussed with RN, pt from home, room air, advanced to regular diet. Possible discharge home if pt has a BM today. Med Assist following for self pay status. SW will continue to follow.
--- NOTE | 2020-04-07 11:48 | PDOC ---
[employer] PROGRESS NOTE Date of Service DOS: DATE: 04/07/20 TIME: 11:47 Chief Complaint Chief Complaint Acute abdominal pain with radiographic suggestion of acute pancreatitis Hepatic steatosis Uterine fibroid Tobacco misuse Admit to medicine for further management Keep n.p.o. Continue IV fluids IV pain control Pending abdominal ultrasound to rule out gallstone pancreatitis Pending lipid panel to rule out triglyceride induced pancreatitis Lovenox for DVT prophylaxis Pepcid GI prophylaxis ADA diet Full code Discussed with RN and SW Disposition inpatient management as above Surrogate decision maker is the self History of Present Illness History of Present Illness 04/07/2020 No acute events overnight. Tolerating clear liquid diet and advance to full liquid diet. Patient had episode of vomiting and wishes to stay 1 more day. No flatus or bowel movement yet. Patient's chart, labs, images were reviewed and discussed with RN 34 year old female coming in for right-sided abdominal pain started since she woke up at 1530 the afternoon. Patient does states she has a history of pancreatitis but states it affected the left side of her abdomen, 2 years ago. Says she has tried to eat but does not have appetite when she did the pain seemed worse. Patient states the pain is worse with movement. Denies any known history of gallbladder problems. Denies any changes in urination. Patient does states she has alcohol last night. Denies any fevers, cough, pain anywhere else, diarrhea or constipation. Vitals/I&O Vitals/I&O: Vital Signs Date Time Temp Pulse Resp B/P (MAP) Pulse Ox O2 Delivery O2 Flow Rate FiO2 04/07/20 11:23 69 169/119 04/07/20 10:46 98.1 18 99 Room Air 98.1 I & O 04/06/20 04/06/20 04/07/20 15:00 23:00 07:00 Intake Total 240 ml 300 ml 320 ml Output Total 300 ml Balance 240 ml 0 ml 320 ml Physical Exam General: Alert, Oriented X3, Cooperative, No acute distress Heart: Regular rate, Normal S1, Normal S2, No murmurs Abdomen: No masses Extremities: No clubbing, No cyanosis, No edema, Normal pulses, No tenderness/swelling Skin: No rashes, No breakdown Labs Labs: Laboratory Tests Test 04/06/20 17:15 04/07/20 07:20 Urine Opiates Screen Pos (NEG) Urine Methadone Screen Neg (NEG) Urine Barbiturates Neg (NEG) Urine Phencyclidine Screen Neg (NEG) Urine Amphetamine/Methamphetamine Neg (NEG) Urine Benzodiazepines Screen Neg (NEG) Urine Cocaine Screen Neg (NEG) Urine Cannabinoids Screen Neg (NEG) Urine Ethyl Alcohol Neg (NEG) White Blood Count 4.0 x10^3/uL (4.0-11.0) Red Blood Count 4.01 x10^6/uL (3.50-5.40) Hemoglobin 12.6 g/dL (12.0-15.5) Hematocrit 37.6 % (36.0-47.0) Mean Corpuscular Volume 94 fL (79-100) Mean Corpuscular Hemoglobin 32 pg (25-35) Mean Corpuscular Hemoglobin Concent 34 g/dL (31-37) Red Cell Distribution Width 14.7 % (11.5-14.5) Platelet Count 232 x10^3/uL (140-400) Neutrophils (%) (Auto) 54 % (31-73) Lymphocytes (%) (Auto) 33 % (24-48) Monocytes (%) (Auto) 12 % (0-9) Eosinophils (%) (Auto) 1 % (0-3) Basophils (%) (Auto) 1 % (0-3) Neutrophils # (Auto) 2.2 x10^3/uL (1.8-7.7) Lymphocytes # (Auto) 1.3 x10^3/uL (1.0-4.8) Monocytes # (Auto) 0.5 x10^3/uL (0.0-1.1) Eosinophils # (Auto) 0.0 x10^3/uL (0.0-0.7) Basophils # (Auto) 0.0 x10^3/uL (0.0-0.2) Sodium Level 133 mmol/L (136-145) Potassium Level 3.4 mmol/L (3.5-5.1) Chloride Level 100 mmol/L (98-107) Carbon Dioxide Level 25 mmol/L (21-32) Anion Gap 8 (6-14) Blood Urea Nitrogen 3 mg/dL (7-20) Creatinine 0.7 mg/dL (0.6-1.0) Estimated GFR (Cockcroft-Gault) 115.9 BUN/Creatinine Ratio 4 (6-20) Glucose Level 91 mg/dL (70-99) Calcium Level 8.2 mg/dL (8.5-10.1) Phosphorus Level 2.5 mg/dL (2.6-4.7) Magnesium Level 1.6 mg/dL (1.8-2.4) Total Bilirubin 0.8 mg/dL (0.2-1.0) Aspartate Amino Transf (AST/SGOT) 27 U/L (15-37) Alanine Aminotransferase (ALT/SGPT) 26 U/L (14-59) Alkaline Phosphatase 79 U/L (46-116) Total Protein 6.9 g/dL (6.4-8.2) Albumin 3.3 g/dL (3.4-5.0) Albumin/Globulin Ratio 0.9 (1.0-1.7) Assessment and Plan Assessmemt and Plan Problems Medical Problems: (1) Acute pancreatitis Status: Acute Comment Review of Relevant I have reviewed the following items zahida (where applicable) has been applied. Medications: Current Medications Medications (Trade) Dose Ordered Sig/Drew Route PRN Reason Start Time Stop Time Status Last Admin Dose Admin Oxycodone/ Acetaminophen (Percocet 5/325) 1 tab PRN Q6HRS PRN PO MODERATE-SEVERE PAIN 04/06/20 12:00 04/06/20 23:26 Multivitamins (Thera M Plus) 1 tab DAILY PO 04/06/20 15:00 04/07/20 07:48 Folic Acid (Folic Acid) 1 mg DAILY PO 04/06/20 15:00 04/07/20 07:48 Thiamine Mononitrate (Vitamin B-1) 100 mg DAILY PO 04/06/20 15:00 04/07/20 07:48 Lorazepam (Ativan Inj) 2 mg PRN Q1HR PRN IV For CIWA 8-14 04/06/20 14:30 04/06/20 20:09 Metoprolol Tartrate (Lopressor) 12.5 mg PRN Q6HRS PRN PO FOR SBP 170 AND ABOVE 04/06/20 23:15 04/07/20 07:49 Morphine Sulfate (Morphine Sulfate) 2 mg PRN Q1HR PRN IV MODERATE PAIN 04/07/20 05:00 04/07/20 05:13 Amlodipine Besylate (Norvasc) 10 mg DAILY PO 04/07/20 10:30 04/07/20 11:23 Justifications for Admission Other Justification Acute pancreatitis GHAZAL GARNETT MD Apr 07, 2020 11:48
--- NOTE | 2020-04-07 11:53 | PDOC ---
REDRAW[employer] PROGRESS NOTE Date of Service: DATE: 04/07/20 TIME: 11:52 Subjective: The pt feels better today. She is on a CLD Objective: Vital Signs: Vital Signs Date Time Temp Pulse Resp B/P (MAP) Pulse Ox O2 Delivery O2 Flow Rate FiO2 04/06/20 07:00 98.0 75 16 144/97 (113) 98 Room Air 98.0 Vital Signs Date Time Temp Pulse Resp B/P (MAP) Pulse Ox O2 Delivery O2 Flow Rate FiO2 04/07/20 11:23 69 169/119 04/07/20 10:46 98.1 18 99 Room Air 98.1 Labs: Laboratory Tests Test 04/06/20 17:15 04/07/20 07:20 Urine Opiates Screen Pos (NEG) Urine Methadone Screen Neg (NEG) Urine Barbiturates Neg (NEG) Urine Phencyclidine Screen Neg (NEG) Urine Amphetamine/Methamphetamine Neg (NEG) Urine Benzodiazepines Screen Neg (NEG) Urine Cocaine Screen Neg (NEG) Urine Cannabinoids Screen Neg (NEG) Urine Ethyl Alcohol Neg (NEG) White Blood Count 4.0 x10^3/uL (4.0-11.0) Red Blood Count 4.01 x10^6/uL (3.50-5.40) Hemoglobin 12.6 g/dL (12.0-15.5) Hematocrit 37.6 % (36.0-47.0) Mean Corpuscular Volume 94 fL (79-100) Mean Corpuscular Hemoglobin 32 pg (25-35) Mean Corpuscular Hemoglobin Concent 34 g/dL (31-37) Red Cell Distribution Width 14.7 % (11.5-14.5) H Platelet Count 232 x10^3/uL (140-400) Neutrophils (%) (Auto) 54 % (31-73) Lymphocytes (%) (Auto) 33 % (24-48) Monocytes (%) (Auto) 12 % (0-9) H Eosinophils (%) (Auto) 1 % (0-3) Basophils (%) (Auto) 1 % (0-3) Neutrophils # (Auto) 2.2 x10^3/uL (1.8-7.7) Lymphocytes # (Auto) 1.3 x10^3/uL (1.0-4.8) Monocytes # (Auto) 0.5 x10^3/uL (0.0-1.1) Eosinophils # (Auto) 0.0 x10^3/uL (0.0-0.7) Basophils # (Auto) 0.0 x10^3/uL (0.0-0.2) Sodium Level 133 mmol/L (136-145) L Potassium Level 3.4 mmol/L (3.5-5.1) L Chloride Level 100 mmol/L (98-107) Carbon Dioxide Level 25 mmol/L (21-32) Anion Gap 8 (6-14) Blood Urea Nitrogen 3 mg/dL (7-20) L Creatinine 0.7 mg/dL (0.6-1.0) Estimated GFR (Cockcroft-Gault) 115.9 BUN/Creatinine Ratio 4 (6-20) L Glucose Level 91 mg/dL (70-99) Calcium Level 8.2 mg/dL (8.5-10.1) L Phosphorus Level 2.5 mg/dL (2.6-4.7) L Magnesium Level 1.6 mg/dL (1.8-2.4) L Total Bilirubin 0.8 mg/dL (0.2-1.0) Aspartate Amino Transferase (AST) 27 U/L (15-37) Alanine Aminotransferase (ALT) 26 U/L (14-59) Alkaline Phosphatase 79 U/L (46-116) Total Protein 6.9 g/dL (6.4-8.2) Albumin 3.3 g/dL (3.4-5.0) L Albumin/Globulin Ratio 0.9 (1.0-1.7) L Laboratory Tests 04/07/20 07:20 Laboratory Tests 04/07/20 07:20 Laboratory Tests 04/07/20 07:20 Physical Exam: GENERAL: No apparent distress. Alert and oriented. HEENT: Head normocephalic, atraumatic. NECK: Supple LUNGS: Clear to auscultation. HEART: RRR, S1, S2 present, pulses intact ABDOMEN: Soft, positive bowel sounds. EXTREMITIES: No cyanosis or edema. NEUROLOGIC: Normal speech, normal tone PSYCHIATRIC: Normal affect, normal mood. SKIN: No ulceration. Assessment & Plan: A/P 34y admitted for pancreatitis 1.) Uterine leiomyomas incidentally seen on CT. Pt reports h/o heavy cycles. Pt without anemia and not actively bleeding. No need for intervention (imaging or tx) at this time 2.) Heavy bleeding 2/2 fibroids, as above 3.) Pancreatitis per primary team 4.) Fatty liver per primary team 5.) HTN not well controlled, has not established with PCP, managed inpt per primary team 6.) Will continue to follow LIAM GRIGGS MD Apr 07, 2020 11:53
[2020-04-07] MEDS: oxyCODONE/APAP 5/325 1 TAB TABLET PO PRN ×2 (14:47→21:32)
--- NOTE | 2020-04-07 23:39 | NUR ---
pt having auditory hallucination ,BP checked 181/127 ,new order received from Dr Serrano.
[2020-04-07] MEDS ORDERED: LABETALOL 20 MG/4 ML DISP.SYRIN. IVP PRN (23:45)
--- NOTE | 2020-04-08 00:05 | NUR ---
pt alert and oriented at this time, wanting to go home against medical advice, refused blood pressure medication, insisting of going home, pt called her and family to come and pick her up. Dr Serrano notified and nursing compounding and finishing supervisor notified.
--- NOTE | 2020-04-08 00:35 | NUR ---
pt's brother Nic here and picked up patient at 0030 , escorted by security
== END 2020-04-08 00:30 | disposition left against medical advice (07) ==
LOC: ER 19:22 → 4 NORTH 04-06 01:36
PROVIDERS: ADMIT Internal Medicine; ATTEND Internal Medicine
DX: K85.90 Acute pancreatitis without necrosis or infection, unspecified (principal); K76.0 Fatty (change of) liver, not elsewhere classified; D25.9 Leiomyoma of uterus, unspecified; I10 Essential (primary) hypertension; E78.00 Pure hypercholesterolemia, unspecified; F17.200 Nicotine dependence, unspecified, uncomplicated; Z79.899 Other long term (current) drug therapy
CPT/HCPCS: 36415; 74177; 76700; 80053; 80061; 80307; 81001; 81025; 83690; 83735; 84100; 85025; 96361; 96372; 96374; 96375; 96376; 99285; G0378; J1650; J2060; J2270; J2405; J3010; J7030; Q9967; G0379